=== PATIENT | male | born 1955 | race Caucasian/White ===

== ENCOUNTER → 2020-03-10 | Outpatient (CLI) | payer MEDICARE ==
[~2020-03-10] MED LIST: ASPIRIN E.C. 8181 MG PO; BYSTOLIC5 MG PO; CEFTIN500 MG PO; CEPHALEXIN500 M1 PO; COZAAR100 MG PO; DYAZIDE 25 MG-51 CAP PO; EXFORGE 10 MG-31 TAB PO; HYDRODIURIL50 MG PO; LASIX 40MG TABL40 MG PO; MAXZIDE 50 MG-71 TAB PO; NO HOME MEDICATIONS; NORCO 325 MG-51 TAB PO; NORVASC 10MG10 MG PO; ZYLOPRIM 300MG300 MG PO
== END ==
LOC: COL.RAD 12:56
DX: E11.22 Type 2 diabetes mellitus with diabetic chronic kidney disease (principal); N18.2 Chronic kidney disease, stage 2 (mild); R90.82 White matter disease, unspecified; R51 Headache

== ENCOUNTER 2020-05-11 08:38 | Emergency (ER) | payer MEDICARE ==
[~2020-05-11] VITALS: Ht 170.2 cm; Wt 131.8 kg
[2020-05-11 08:42] VITALS: BP 163/66; TEMP 97.6
[2020-05-11] MEDS ORDERED: MEDROL 4MG DOSPA4 MG PO (09:51)
[2020-05-11] MEDS ORDERED: HCTZ 25MG TAB25 MG PO (10:06)
[2020-05-11] MEDS ORDERED: PRINIVIL20 MG PO (10:06)
[2020-05-11] MEDS ORDERED: GLUCOPHAGE1000 MG PO (10:06)
[2020-05-11 10:10] VITALS: PULSE 86
== END 2020-05-11 10:11 | disposition home or self-care (01) ==
LOC: COL.ER 08:38
DX: M54.16 Radiculopathy, lumbar region (principal); M25.562 Pain in left knee; I10 Essential (primary) hypertension; M10.9 Gout, unspecified; Z79.82 Long term (current) use of aspirin

== ENCOUNTER 2020-09-24 15:05 | Emergency (ER) | payer MEDICARE ==
[~2020-09-24] VITALS: Ht 170.2 cm; Wt 127.3 kg
[~2020-09-24 15:05] MED LIST changes: +GLUCOPHAGE1000 MG PO; +HCTZ 25MG TAB25 MG PO; +MEDROL 4MG DOSPA4 MG PO; +PRINIVIL20 MG PO
[2020-09-24 15:14] VITALS: TEMP 98.2
[2020-09-24 15:47] LABS: BASO % 0.3 % (0.0-2.0); EOS % 0.3 % (0-4.0); GRAN # 10.7 (1.4-6.5); GRAN % 85.3 % (42.2-75.2); HEMATOCRIT 46.6 % (42.0-52.0); HEMOGLOBIN 16.3 g/dl (13.5-18.0); LYMPH # 0.9 (1.2-3.4); LYMPH % 6.8 % (20.0-51.0); MEAN CELL VOLUME 92 fl (80.0-100.0); MEAN CORPUSCULAR HEMOGLOBIN 32 pg (27.0-31.0); MEAN CORPUSCULAR HGB CONC 35 g/dl (33.0-37.0); MONO # 0.9 (0.1-0.6); MONO % 7.1 % (1.7-9.3); PLATELET COUNT 232 K/mm3 (130-400); RED BLOOD COUNT 5.09 M/mm3 (4.20-5.60); REDCELL DISTRIBUTION WIDTH-CV 13.4 % (11.5-14.5)
[2020-09-24 15:58] LABS: ALBUMIN 4.3 gm/dL (3.5-5.0); BILIRUBIN,TOTAL 0.7 mg/dL (0.0-1.0); C-REACTIVE PROTEIN 1.3 mg/dL (0.0-0.9); CALCIUM 9.5 mg/dL (8.4-10.2); CREATININE, serum 1.21 (0.66-1.25); POTASSIUM 4.1 mmol/L (3.4-5.0); TOTAL PROTEIN 7.4 gm/dL (6.4-8.2)
[2020-09-24 17:52] LABS: COLLECTION METHOD CLEAN CATCH
[2020-09-24 18:39] LABS: MUCOUS Present /lpf; PH 5 (5-8); SQUAMOUS EPITHELIAL None Seen /hpf; URINE APPEARANCE Clear; URINE BACTERIA None Seen /hpf; URINE BILIRUBIN Negative (NEGATIVE); URINE BLOOD Negative (NEGATIVE); URINE COLOR Yellow; URINE GLUCOSE Negative (NEGATIVE); URINE KETONE Trace (NEGATIVE); URINE LEUKOCYTE ESTERASE Negative (NEGATIVE); URINE NITRATE Negative (NEGATIVE); URINE PROTEIN(semi-quant) 1+ (NEGATIVE); URINE UROBILINOGEN Negative (NEGATIVE)
[2020-09-24] MEDS ORDERED: PRINIVIL20 MG PO (18:49)
[2020-09-24 19:00] VITALS: BP 150/106; PULSE 79
== END 2020-09-24 19:00 | disposition home or self-care (01) ==
LOC: COL.ER 15:05
PROVIDERS: Nurse Practitioner
DX: K59.00 Constipation, unspecified (principal); I10 Essential (primary) hypertension; Z79.82 Long term (current) use of aspirin; Z79.84 Long term (current) use of oral hypoglycemic drugs
CPT/HCPCS: Q9967

== ENCOUNTER 2021-03-07 15:38 | Inpatient (IN) | payer MEDICARE ==
[~2021-03-07] VITALS: Ht 170.2 cm; Wt 109.1 kg
[2021-03-07 16:19] LABS: BASO % 0.5 % (0.0-2.0); EOS % 0.1 % (0-4.0); GRAN % 81.1 % (42.2-75.2); HEMATOCRIT 41.8 % (42.0-52.0); HEMOGLOBIN 13.9 g/dl (13.5-18.0); LYMPH # 0.7 (1.2-3.4); MEAN CELL VOLUME 89 fl (80.0-100.0); MEAN CORPUSCULAR HEMOGLOBIN 30 pg (27.0-31.0); MEAN CORPUSCULAR HGB CONC 33 g/dl (33.0-37.0); MEAN PLATELET VOLUME 9.4 fl (7.4-10.4); MONO # 0.6 (0.1-0.6); MONO % 7.9 % (1.7-9.3); PLATELET COUNT 161 K/mm3 (130-400); RED BLOOD COUNT 4.71 M/mm3 (4.20-5.60); REDCELL DISTRIBUTION WIDTH-CV 14.6 % (11.5-14.5)
[2021-03-07 16:30] LABS: ALANINE AMINOTRANSFERASE 11 U/L (4-49); ALBUMIN 3.6 gm/dL (3.5-5.0); ALCOHOL(ethanol),MEDICAL < 10 mg/dL; ALKALINE PHOSPHATASE 66 U/L (50-136); ANION GAP 5 mmol/L (7-16); AST,SGOT 29 U/L (15-37); BILIRUBIN,TOTAL 0.7 mg/dL (0.0-1.0); BLOOD UREA NITROGEN 17 mg/dL (9-20); CARBON DIOXIDE 25 mmol/L (22-30); CHLORIDE 107 mmol/L (98-107); GLUCOSE 109 mg/dL (74-106); POTASSIUM 3.6 mmol/L (3.4-5.0); SODIUM 137 mmol/L (137-145); TOTAL PROTEIN 6.6 gm/dL (6.4-8.2)
[2021-03-07 17:09] LABS: INR 1.1 (0.8-3.0); PROTHROMBIN TIME 11.9 SECONDS (9.7-12.8)
--- NOTE | 2021-03-07 19:40 | NUR ---
Arrived on unit, awake, alert, oriented x 4, verbal with clear speech, no issues noted, denies pain, ambulates with steady gait, updated on plan of care.
[2021-03-07 20:01] LABS: HEMATOCRIT 40.4 % (42.0-52.0); HEMOGLOBIN 13.2 g/dl (13.5-18.0)
[2021-03-07 20:45] VITALS: BP 154/81; PULSE 67; TEMP 98
[2021-03-07 22:02] LABS: HEMATOCRIT 38.4 % (42.0-52.0); HEMOGLOBIN 12.7 g/dl (13.5-18.0)
[2021-03-08] VITALS (15 sets, daily range): BP systolic 135–201; BP diastolic 67–103; PULSE 60–100; TEMP 97.4–98.4
[2021-03-08 02:13] LABS: HEMATOCRIT 38.1 % (42.0-52.0); HEMOGLOBIN 12.7 g/dl (13.5-18.0)
[2021-03-08 06:18] LABS: BASO % 0.6 % (0.0-2.0); EOS # 0.1 (0.0-0.7); EOS % 1.3 % (0-4.0); GRAN # 3.1 (1.4-6.5); HEMOGLOBIN 11.9 g/dl (13.5-18.0); LYMPH # 1.1 (1.2-3.4); LYMPH % 22.3 % (20.0-51.0); MEAN CELL VOLUME 91 fl (80.0-100.0); MEAN CORPUSCULAR HEMOGLOBIN 30 pg (27.0-31.0); MEAN CORPUSCULAR HGB CONC 33 g/dl (33.0-37.0); MEAN PLATELET VOLUME 10.1 fl (7.4-10.4); MONO # 0.5 (0.1-0.6); MONO % 10.6 % (1.7-9.3); PLATELET COUNT 144 K/mm3 (130-400); RED BLOOD COUNT 3.95 M/mm3 (4.20-5.60); REDCELL DISTRIBUTION WIDTH-CV 14.6 % (11.5-14.5)
[2021-03-08 06:27] LABS: HEMATOCRIT 35.8 % (42.0-52.0)
[2021-03-08 06:29] LABS: CREATININE, serum 1.03 (0.66-1.25); POTASSIUM 3.4 mmol/L (3.4-5.0)
[2021-03-08 09:40] LABS: TRICYCLIC ANTIDEPRESS URINE NEGATIVE
--- NOTE | 2021-03-08 10:00 | NUR ---
Patient is doing well this morning. Denies pain and nausea. He is still having bowel movments from the bowel prep, so far they continue to be clear without blood. Voiding without issues. Patient is alert and oriented. Rating low on the detox protocol. His BP is elevated but no other changes at this time. Call light within reach. Patient will be going for his EGD/Colonoscopy later today. He is ready for that procedure. No other changes at this time. Call light within reach.
[2021-03-08 10:31] LABS: HEMATOCRIT 38.8 % (42.0-52.0); HEMOGLOBIN 12.6 g/dl (13.5-18.0)
--- NOTE | 2021-03-08 12:24 | NUR ---
SW met with the pt who stated his preference to return home once medically stable. The pt lives at home with a friend. The pt NK is Coni Ng (ph# [phone]). The pt is independent on all ADLS and uses a CPAP machine. The pt pcp is Alverto De La Torre and gets his medications from [facility] in [facility]. The pt has no troubles obtaining his cost. The pt does not have a DPAO-HC and is not interested in one at this time. The pt has never used HH services before. No other needs stated at this time. Sw to await further recommendations and follow up as needed. D/C: Home
--- NOTE | 2021-03-08 12:45 | NUR ---
Patient is going down for his procedure. He will sign consent after talking to the doctor. His blod pressure is starting to rise. Will speak with Dr Love about starting his BP medications. No other changes at this time.
[2021-03-08] MEDS ORDERED: ZESTRIL 20MG TA20 MG PO (14:13)
--- NOTE | 2021-03-08 15:00 | NUR ---
Patient back from his procedure at 1410, his BP is 191/92. Notified Dr Love, he ordered lisinopril. Will be giving his hydralazine as ordered. Patient is alert and oriented. He stated he stopped taking his home BP medications because he couldn't afford to get his medications. After giving medications his BP is now 168/80. No complaints of pain or nausea. No other changes at this time. Call light within reach. No other changes at this time.
--- NOTE | 2021-03-08 18:30 | NUR ---
Patients blood pressure has been better since getting the medications. No complaints of pain or nausea. He tolerated regular food without issues. Asked if he needed help contacting family about his condition, he stated no. He has continued to have loose stools, no more blood noted. No other changes at this time. Call light within reach.
[2021-03-08 19:24] LABS: HEMATOCRIT 38.5 % (42.0-52.0); HEMOGLOBIN 12.6 g/dl (13.5-18.0)
--- NOTE | 2021-03-08 23:01 | NUR ---
Pt has been ok. Currently resting. CIWA Has been 0 for me.VSS. Will continue to monitor.
[2021-03-09] VITALS (9 sets, daily range): BP systolic 137–155; BP diastolic 69–83; PULSE 61–87; TEMP 97.5–98.6
[2021-03-09 07:04] LABS: BASO % 0.6 % (0.0-2.0); EOS # 0.1 (0.0-0.7); EOS % 1.6 % (0-4.0); GRAN # 3.5 (1.4-6.5); GRAN % 70.2 % (42.2-75.2); HEMATOCRIT 37.2 % (42.0-52.0); HEMOGLOBIN 12.3 g/dl (13.5-18.0); LYMPH # 0.9 (1.2-3.4); LYMPH % 18.4 % (20.0-51.0); MEAN CELL VOLUME 91 fl (80.0-100.0); MEAN CORPUSCULAR HEMOGLOBIN 30 pg (27.0-31.0); MEAN CORPUSCULAR HGB CONC 33 g/dl (33.0-37.0); MEAN PLATELET VOLUME 9.9 fl (7.4-10.4); MONO # 0.4 (0.1-0.6); MONO % 8.8 % (1.7-9.3); PLATELET COUNT 137 K/mm3 (130-400); REDCELL DISTRIBUTION WIDTH-CV 14.8 % (11.5-14.5)
[2021-03-09 07:11] LABS: CALCIUM 8.3 mg/dL (8.4-10.2); CREATININE, serum 1.03 (0.66-1.25); POTASSIUM 3.4 mmol/L (3.4-5.0)
--- NOTE | 2021-03-09 08:45 | NUR ---
Patient is resting in bed, awake and oriented x 4, detox protocol patient is scoring 1. No nausea or vomiting. Tolerating food. No further needs at this time. Call light within reach.
--- NOTE | 2021-03-09 09:30 | NUR ---
Dr. Dudley in to see patient discussed transfering to or [place].
--- NOTE | 2021-03-09 12:20 | NUR ---
Initial visit; Patient thanked Planning Consultant for looking in on him and offering God's blessings.
--- NOTE | 2021-03-09 17:53 | NUR ---
Patient has been doing good all day long. Had a shower. No complains of pain, nausea or vomiting. SCDs in place. Both IVs where discontinued. New IV in the right foreamrm was started. No further needs at this moment. Call light within reach.
--- NOTE | 2021-03-09 21:11 | NUR ---
Pt has been in good spirit. Pain rated 0/10. Ciwa has been only 1. Will continue to monitor.
[2021-03-10 02:01] VITALS: BP 148/79; PULSE 87; TEMP 98.3
[2021-03-10 03:36] VITALS: BP 156/75; PULSE 61; TEMP 98
[2021-03-10 07:13] LABS: BASO % 0.4 % (0.0-2.0); EOS # 0.1 (0.0-0.7); EOS % 2.2 % (0-4.0); GRAN # 3.5 (1.4-6.5); GRAN % 69.2 % (42.2-75.2); HEMOGLOBIN 11.3 g/dl (13.5-18.0); LYMPH % 18.9 % (20.0-51.0); MEAN CELL VOLUME 93 fl (80.0-100.0); MEAN CORPUSCULAR HEMOGLOBIN 31 pg (27.0-31.0); MEAN CORPUSCULAR HGB CONC 33 g/dl (33.0-37.0); MONO # 0.5 (0.1-0.6); MONO % 9.1 % (1.7-9.3); PLATELET COUNT 132 K/mm3 (130-400); RED BLOOD COUNT 3.68 M/mm3 (4.20-5.60); REDCELL DISTRIBUTION WIDTH-CV 14.9 % (11.5-14.5)
[2021-03-10 07:14] LABS: HEMATOCRIT 34.3 % (42.0-52.0)
[2021-03-10 07:19] LABS: ALBUMIN 2.7 gm/dL (3.5-5.0); CALCIUM 8.3 mg/dL (8.4-10.2); CREATININE, serum 1.21 (0.66-1.25); PHOSPHOROUS 3.6 mg/dL (2.5-4.5); POTASSIUM 3.8 mmol/L (3.4-5.0)
[2021-03-10 08:00] VITALS: BP 155/83; PULSE 62; TEMP 97.6
--- NOTE | 2021-03-10 09:20 | NUR ---
Patient is resting in bed watching TV. Alert and oriented, VSS, no nausea, vomiting or pain. Last BM one hr ago, no blood reported. Meds provided, no furgther needs right now. Call light within reach.
--- NOTE | 2021-03-10 11:38 | NUR ---
FANNIE update: FANNIE met with patient about getting to his appointments and patient reports he does not have transportation. Unfortunately Medicare does not provide transportation. Educated patient about transport options.
[2021-03-10 11:56] VITALS: BP 160/89; PULSE 62; TEMP 97.9
[2021-03-10] MEDS ORDERED: THIAMINE 1100 MG/TAB PO (12:05)
[2021-03-10] MEDS ORDERED: FOLIC ACID 11 MG/TA1 PO (12:05)
[2021-03-10] MEDS ORDERED: DUO-KAPS1 CAP PO (12:06)
[2021-03-10] MEDS ORDERED: PRINIVIL20 MG PO (12:15)
--- NOTE | 2021-03-10 13:39 | NUR ---
Patient has been doing ok along the day. No complains of pain, nausea, vomiting. Getting ready to be discharged.
--- NOTE | 2021-03-10 14:11 | NUR ---
Reviewed discharge instructions with patients. All questions answered. Patient was taking out by Adela with a wheelchair.
== END 2021-03-10 14:12 | disposition home or self-care (01) | DRG 378 ==
LOC: COL.ER 15:38 → SURG 17:51
PROVIDERS: Emergency Medicine; Internal Medicine Gastroenterology; Nurse Practitioner Family; Nurse Practitioner Primary Care; Student in an Organized Health Care Education/Training Program
PROC: 0DJ08ZZ Inspection of Upper Intestinal Tract, Via Natural or Artificial Opening Endoscopic (ICD-10-PCS; 2021-03-08)
PROC: 0DBP8ZX Excision of Rectum, Via Natural or Artificial Opening Endoscopic, Diagnostic (ICD-10-PCS; principal; 2021-03-08 10:00)
PROC: 0DBK8ZX Excision of Ascending Colon, Via Natural or Artificial Opening Endoscopic, Diagnostic (ICD-10-PCS; 2021-03-08 10:00)
DX: K62.5 Hemorrhage of anus and rectum (principal); I38 Endocarditis, valve unspecified; K55.21 Angiodysplasia of colon with hemorrhage; F10.10 Alcohol abuse, uncomplicated; G47.30 Sleep apnea, unspecified; E66.01 Morbid (severe) obesity due to excess calories; I27.20 Pulmonary hypertension, unspecified; I49.5 Sick sinus syndrome; I10 Essential (primary) hypertension; K59.00 Constipation, unspecified; I25.10 Atherosclerotic heart disease of native coronary artery without angina pectoris; E27.9 Disorder of adrenal gland, unspecified; H44.9 Unspecified disorder of globe; Z91.14 Patient's other noncompliance with medication regimen; Z87.891 Personal history of nicotine dependence; Z95.0 Presence of cardiac pacemaker; Z68.37 Body mass index [BMI] 37.0-37.9, adult
CPT/HCPCS: 99223-AI; 99232-AI; 99233-AI; 99239; C9113; J0360; J2704; J3411; J7030

== ENCOUNTER 2021-07-10 11:13 | Day surgery (SDC) | payer MEDICARE ==
[2021-07-10] VITALS (7 sets, daily range): BP systolic 152–196; BP diastolic 59–99; PULSE 61–78; TEMP 98.3
[~2021-07-10] VITALS: Ht 167.6 cm; Wt 121.8 kg
[~2021-07-10 11:13] MED LIST changes: +DUO-KAPS1 CAP PO; +FOLIC ACID 11 MG/TA1 PO; +THIAMINE 1100 MG/TAB PO; +ZESTRIL 20MG TA20 MG PO
[2021-07-10] MEDS ORDERED: PRINIVIL20 MG PO (11:27)
[2021-07-10] MEDS ORDERED: NORCO 325 MG-51 TAB PO (12:25)
--- NOTE | 2021-07-10 13:32 | NUR ---
Patient arrived on cart from OR, escorted by Kimberlyn MONTIEL and Keith DAVIS. Report recieved. Vitals obtained. BP is very high and TECHNICAL ACCOUNT MANAGER is aware. New orders recieved. Patient requested Pepsi to drink and a warm muffin. will continue to monitor. BP retaken twice to confirm elevated reading. Call obrien is at bedside. Side rails x2.
--- NOTE | 2021-07-10 13:47 | NUR ---
Patient is alert and oriented x3. Watching TV. He is tolerating his muffin and soda well. Vitals obtained. Will continue to monitor.
--- NOTE | 2021-07-10 13:58 | NUR ---
Medication administered. BP prior 178/98. Will continue to monitor
--- NOTE | 2021-07-10 14:18 | NUR ---
Patient is resting in bed with TV on. Vitals obtained and BP has come down. Will continue to monitor.
--- NOTE | 2021-07-10 14:29 | NUR ---
Target BP achieved: 152/59, with a goal of 160/90 or below. Patient expressed desire to be discharged.
--- NOTE | 2021-07-10 14:45 | NUR ---
IV discontinued at this time. Catheter tip intact and pressure dressing applied. No redness or swelling noted. Vitals obtained. Patient education and discharge materials reviewed with patient. He verbalized understanding and denied having any additional questions. Santhosh, his friend and ride home was called. He is only about 10 minutes out.
--- NOTE | 2021-07-10 15:05 | NUR ---
Patient was escorted out via wheelchair to the [facility] from [facility] by DINESH Pace. Patient has his discharge instructions, discharge education, and personal belongings in his hand. Patient was transferred into the care of his friend Arley at this time, who is present to drive.
== END 2021-07-10 15:05 | disposition home or self-care (01) ==
LOC: SDCO 11:13
DX: C20 Malignant neoplasm of rectum (principal); I10 Essential (primary) hypertension; I25.10 Atherosclerotic heart disease of native coronary artery without angina pectoris; I49.5 Sick sinus syndrome; M19.90 Unspecified osteoarthritis, unspecified site; D64.9 Anemia, unspecified; Z87.891 Personal history of nicotine dependence; Z85.038 Personal history of other malignant neoplasm of large intestine; Z79.82 Long term (current) use of aspirin
CPT/HCPCS: C1788; J0360; J0690; J1644; J2250; J2704; J7120

== ENCOUNTER 2021-11-13 11:40 | Inpatient (IN) | payer MEDICARE ==
[~2021-11-13] VITALS: Ht 170.2 cm; Wt 139.8 kg
[2021-11-13] VITALS (14 sets, daily range): BP systolic 92–135; BP diastolic 65–96; PULSE 48–112; TEMP 97.7–98.8
[2021-11-13 12:24] LABS: BASO % 0.6 % (0.0-2.0); EOS % 0.3 % (0.0-4.0); GRAN # 2.7 K/mm3 (1.4-6.5); GRAN % 75.7 % (42.2-75.2); HEMOGLOBIN 11.5 g/dl (13.5-18.0); LYMPH # 0.4 K/mm3 (1.2-3.4); LYMPH % 12.5 % (20.0-51.0); MEAN CELL VOLUME 98 fl (80.0-100.0); MEAN CORPUSCULAR HEMOGLOBIN 32 pg (27-31); MEAN CORPUSCULAR HGB CONC 33 g/dl (33.0-37.0); MEAN PLATELET VOLUME 10.9 fl (7.4-10.4); MONO # 0.4 K/mm3 (0.1-0.6); MONO % 10.3 % (1.7-9.3); PLATELET COUNT 80 K/mm3 (130-400); RED BLOOD COUNT 3.62 M/mm3 (4.20-5.60); REDCELL DISTRIBUTION WIDTH-CV 22.5 % (11.5-14.5)
[2021-11-13 12:26] LABS: HEMATOCRIT 35.4 % (42.0-52.0)
[2021-11-13 12:28] LABS: INR 1.2 (0.8-3.0); PROTHROMBIN TIME 13.7 SECONDS (9.7-12.8)
[2021-11-13 12:33] LABS: ALBUMIN 3.4 gm/dL (3.4-4.8); BILIRUBIN,TOTAL 0.4 mg/dL (0.2-1.2); CALCIUM 8.2 mg/dL (8.4-10.2); CREATININE, serum 1.72 mg/dL (0.72-1.25); POTASSIUM 3.8 mmol/L (3.5-4.5); TOTAL PROTEIN 6.2 gm/dL (6.2-8.1)
[2021-11-13 12:39] LABS: TROPONIN-I 0.019 ng/mL (0.00-0.033)
[2021-11-13 13:30] LABS: COLLECTION METHOD CLEAN CATCH
[2021-11-13 13:37] LABS: PH 5 (5-8); SQUAMOUS EPITHELIAL None Seen /hpf (0-10); URINE APPEARANCE Clear (CLEAR/HAZY); URINE BACTERIA None Seen /hpf (NONE SEEN); URINE BILIRUBIN Negative (NEGATIVE); URINE BLOOD Negative (NEGATIVE); URINE COLOR Straw (YELLOW); URINE GLUCOSE Negative (NEGATIVE); URINE KETONE Negative (NEGATIVE); URINE LEUKOCYTE ESTERASE Negative (NEGATIVE); URINE NITRATE Negative (NEGATIVE); URINE PROTEIN(semi-quant) Negative (NEGATIVE); URINE RBC None Seen /hpf (0-2); URINE UROBILINOGEN Negative (NEGATIVE)
[2021-11-13] MEDS ORDERED: GLUCOPHAGE1000 MG PO (14:12)
[2021-11-13] MEDS ORDERED: LOPRESSOR 225 MG/TAB PO (14:12)
[2021-11-13] MEDS ORDERED: LASIX 40MG TABL40 MG PO (14:12)
[2021-11-13] MEDS ORDERED: ASPIRIN E.C. 8181 MG PO (14:12)
[2021-11-13] MEDS ORDERED: HCTZ 25MG TAB25 MG PO (14:13)
[2021-11-13] MEDS ORDERED: ZYLOPRIM 300MG300 MG PO (14:13)
--- NOTE | 2021-11-13 16:30 | NUR ---
PATIENT ADMITED INTO ROOM 315 FROM ER. PATIENT PRESENTED TO ER WITH C/O SOA. EKG SHOWED A-FIB/RVR. PATIENT SENT UP FROM ER WITH DILTIEZEM GTT, CARDIOLOGY CONSULTED MAR ORDER IS DC'D. NO C/O CHEST PAIN OR NAUSEA. VSS ON TELE. 02 SAT OF 98% ON RA. PATIENT IS OBESE AND BARREL CHESTED. POOR HYSTORIA, POOR HYGEINE AND SEEMS NON-COMPLIENT DURING ADMISSION ASSESSMENT. LOCAL PHARMACY CONTACTED FOR MED LIST. PATIENT UNSURE OF LAST DOSES. BS OF 79. ADA DIET ORDERED. BS ACHS. HEAD TO TOE ASSESSMENT COMPLETE. OBTAINING ORDERS FROM PROVIDER. ORIENTED TO ROOM. CALL LIGHT IN REACH.
--- NOTE | 2021-11-13 16:45 | NUR ---
CARDIZEM GTT INFUSING FROM ER STOPPED PER ORDERS. STARTED AMIODERONE GTT PER ORDERS. VSS. PATIENT TOLERATING WELL.
[2021-11-13] MEDS ORDERED: FOLIC ACID 11 MG/TA1 PO (17:04)
[2021-11-13] MEDS ORDERED: NORCO 325 MG-51 TAB PO (17:08)
[2021-11-13] MEDS ORDERED: NATURE'S BLEND100 M2 PO (17:11)
[2021-11-14] VITALS (21 sets, daily range): BP systolic 84–158; BP diastolic 53–113; PULSE 79–116; TEMP 97.2–99.3
--- NOTE | 2021-11-14 06:30 | NUR ---
ASSESSMENT COMPLETE FOR THIS SHIFT. PT RESTING IN BED DOZING OFF WHILE WATCHING TV. PT DENIES PAIN, N,V,D, SOB OR DIZZINESS. PT CONTINUES ON AMIODARONE DRIP. PT TOLERATING. PT EXPRESSED NO OTHER NEEDS AT THIS TIME. CALL LIGHT WITHIN REACH.
[2021-11-14 07:59] LABS: BASO % 0.5 % (0.0-2.0); EOS % 0.5 % (0.0-4.0); GRAN % 73.6 % (42.2-75.2); HEMOGLOBIN 10.3 g/dl (13.5-18.0); LYMPH # 0.5 K/mm3 (1.2-3.4); LYMPH % 13.1 % (20.0-51.0); MEAN CELL VOLUME 99 fl (80.0-100.0); MEAN CORPUSCULAR HEMOGLOBIN 31 pg (27-31); MEAN CORPUSCULAR HGB CONC 32 g/dl (33.0-37.0); MONO # 0.5 K/mm3 (0.1-0.6); MONO % 12.1 % (1.7-9.3); PLATELET COUNT 67 K/mm3 (130-400); RED BLOOD COUNT 3.28 M/mm3 (4.20-5.60); REDCELL DISTRIBUTION WIDTH-CV 23.2 % (11.5-14.5)
[2021-11-14 08:03] LABS: HEMATOCRIT 32.5 % (42.0-52.0)
[2021-11-14 08:07] LABS: CREATININE, serum 1.76 mg/dL (0.72-1.25); MAGNESIUM 1.7 mg/dL (1.6-2.6); POTASSIUM 3.7 mmol/L (3.5-4.5)
[2021-11-14 08:28] LABS: TSH w REFLEX 1.809 uIU/mL (0.350-4.940)
--- NOTE | 2021-11-14 12:49 | NUR ---
Phototypesetter Operator visited with patient briefly. Nothing else needed.
--- NOTE | 2021-11-14 14:50 | NUR ---
forest worker met with patient to complete discharge plan. Patient currently lives at home alone in [place]. Patient reports to being independent with his ADL's and does not utilize and DME to assist with ambulation. Patient reports to no home oxygen needs. PCP is Dr. De La Torre and he utilizes [facility] for medications with no cost difficulty. Patient verbalizes that he does not have a DPOA-HC established. He has never been , has no children, siblings and that his parents to . Patient's established NOK would be his cousin Alverto ([phone]). Education provided and the patient is ok with Alverto being his decision maker. Dischar plan: Home; pending PT/OT eval
[2021-11-15] VITALS (7 sets, daily range): BP systolic 110–125; BP diastolic 57–96; PULSE 81–120; TEMP 97.5–98.6
--- NOTE | 2021-11-15 05:30 | NUR ---
ASSESSMENT COMPLETE FOR THIS SHIFT. PT RESTING IN BED WATCHING TV. PT DENIED PAIN, PALPITATIONS, N,V,D, SOB (AT REST), OR DIZZINESS. TWO BLADDER SCANS DONE THIS SHIFT. THE FIRST SHOWED 106ML IN HIS BLADDER. THE SECOND AT FIRST SHOWED 301. I TOLD PT I WOULD BE PLACING A CATHETER. PT STATED HE HAD TO URINATE. PT URINED 200ML WITH MORE MISSING THE HAT AND GOING INTO THE TOILET. BLADDER SCAN REPEATED, IT ONLY READ 3ML, BUT I WOULD GUESSTIMATE IT'S MORE LIKE 50ML. PT EXPRESSED NO OTHER NEEDS AT THIS TIME. CALL LIGHT WITHIN REACH.
[2021-11-15 07:56] LABS: BASO % 0.2 % (0.0-2.0); EOS % 0.5 % (0.0-4.0); GRAN # 3.5 K/mm3 (1.4-6.5); GRAN % 78.1 % (42.2-75.2); HEMOGLOBIN 10.7 g/dl (13.5-18.0); LYMPH # 0.6 K/mm3 (1.2-3.4); LYMPH % 12.4 % (20.0-51.0); MEAN CELL VOLUME 97 fl (80.0-100.0); MEAN CORPUSCULAR HEMOGLOBIN 31 pg (27-31); MEAN CORPUSCULAR HGB CONC 32 g/dl (33.0-37.0); MONO # 0.4 K/mm3 (0.1-0.6); MONO % 8.6 % (1.7-9.3); PLATELET COUNT 70 K/mm3 (130-400); RED BLOOD COUNT 3.41 M/mm3 (4.20-5.60); REDCELL DISTRIBUTION WIDTH-CV 22.8 % (11.5-14.5)
[2021-11-15 07:59] LABS: HEMATOCRIT 33.1 % (42.0-52.0)
[2021-11-15 08:14] LABS: CREATININE, serum 1.91 mg/dL (0.72-1.25); POTASSIUM 3.6 mmol/L (3.5-4.5)
--- NOTE | 2021-11-15 10:19 | NUR ---
DR. BUENO GAVE VERBAL ORDER TO START PT ON Q8H SQ HEPARIN FOR VTE. PT ALSO ON ASPIRIN 81MG, OK TO CONTINUE BOTH.
--- NOTE | 2021-11-15 21:06 | NUR ---
Pt resting in bed laying on his right side. Pt is pretty far on the right side. Asked pt to move more the center of the bed, but pt refused. Pt also did this at shift change too. We were able to get him to move at that time, but he was very unhappy about it. Pt very short with conversation, simple one word answers. Asked pt if anything was wrong and he replied with no. Pt denied having any pain. Pt denies any needs, refusing to use bipap at this time. Pt educated again on the fluid restriction. Pt only responded with a smile. Call light within reach.
[2021-11-16] VITALS (7 sets, daily range): BP systolic 122–151; BP diastolic 77–112; PULSE 52–104; TEMP 97.3–97.8
--- NOTE | 2021-11-16 00:22 | NUR ---
Pt continues to be awake. He continues to be on his right side stating he is comfortable although he does not appear to be. Pt denies any needs, call light within reach
--- NOTE | 2021-11-16 04:24 | NUR ---
Pt diastolic BP elevated. Pt sitting up on the side of the bed. Pt stated he is irritated because of his catheter and he is not able to get comfortable. Reports not having any pain, but it bothers him. Notified ELVIE Loja of elevated BP. While pt was sitting up, he was leaning on his bedside table. Pt started to get choked up for air. Pt had to lean back to catch his breath. Asked if he was okay and he stated he was, that "that happens."
[2021-11-16 06:37] LABS: BASO % 0.5 % (0.0-2.0); EOS % 0.3 % (0.0-4.0); GRAN # 5.1 K/mm3 (1.4-6.5); GRAN % 81.8 % (42.2-75.2); HEMOGLOBIN 11.4 g/dl (13.5-18.0); LYMPH # 0.5 K/mm3 (1.2-3.4); LYMPH % 8.7 % (20.0-51.0); MEAN CELL VOLUME 98 fl (80.0-100.0); MEAN CORPUSCULAR HEMOGLOBIN 31 pg (27-31); MEAN CORPUSCULAR HGB CONC 32 g/dl (33.0-37.0); MEAN PLATELET VOLUME 11.2 fl (7.4-10.4); MONO # 0.5 K/mm3 (0.1-0.6); MONO % 8.5 % (1.7-9.3); PLATELET COUNT 101 K/mm3 (130-400); REDCELL DISTRIBUTION WIDTH-CV 22.8 % (11.5-14.5)
[2021-11-16 06:54] LABS: HEMATOCRIT 36.2 % (42.0-52.0)
[2021-11-16 07:10] LABS: CALCIUM 8.3 mg/dL (8.4-10.2); CREATININE, serum 2.14 mg/dL (0.72-1.25); POTASSIUM 3.7 mmol/L (3.5-4.5)
--- NOTE | 2021-11-16 08:28 | NUR ---
Patient A&Ox4, laying in bed w/ bipap on. Bipap removed at this time so patient could take medications and eat breakfast. Patient is very pleasant and appears to be in a good mood. Patient is reported to be a SBA, able to change positions in bed independently. Call light is w/in reach.
--- NOTE | 2021-11-16 09:38 | NUR ---
Patient sitting in recliner upon entering the room. Patient is A&Ox4, and independent. Lindquist is intact and draining properly. Patient is currently NPO per cardiology. This RN has been instructed to hold meds. Patient does not have and concerns at this time. Denies any discomfort.
--- NOTE | 2021-11-16 14:42 | NUR ---
Patient has not expressed any concerns. Consent signed for cardioversion. Patient remains in recliner. Pacemaker device download completed by this RN.
--- NOTE | 2021-11-16 18:32 | NUR ---
Patient notified of POC change; Lexiscan scheduled for tomorrow. Patient will become NPO at midnight.
--- NOTE | 2021-11-16 23:14 | NUR ---
Patient assessed around 2109. Alert and oriented, and able to make needs known. Denies pain and discomfort. Peripheral INT to left AC. Denies SOB and dyspnea at rest, does with exertion. LS diminished. Refusing BIPAP. Telemetry in place. BSAx4. 2+ edema BLE. Voices no questions, needs, or concerns at this time. Aware that he is to be NPO after midnight for lexiscan tomorrow.
[2021-11-17] VITALS (11 sets, daily range): BP systolic 123–172; BP diastolic 78–118; PULSE 69–105; TEMP 97.5–98.5
--- NOTE | 2021-11-17 04:54 | NUR ---
Patient has been resting in bed with call light within reach. Has denied pain and discomfort this shift. Has been NPO since midnight for lexiscan today. Voices no questions, needs, or concerns at htis time.
[2021-11-17 06:45] LABS: BASO % 0.2 % (0.0-2.0); EOS % 0.6 % (0.0-4.0); GRAN # 4.2 K/mm3 (1.4-6.5); GRAN % 81.5 % (42.2-75.2); HEMOGLOBIN 10.9 g/dl (13.5-18.0); LYMPH # 0.5 K/mm3 (1.2-3.4); LYMPH % 8.7 % (20.0-51.0); MEAN CELL VOLUME 101 fl (80.0-100.0); MEAN CORPUSCULAR HEMOGLOBIN 32 pg (27-31); MEAN CORPUSCULAR HGB CONC 31 g/dl (33.0-37.0); MEAN PLATELET VOLUME 10.3 fl (7.4-10.4); MONO # 0.5 K/mm3 (0.1-0.6); MONO % 8.8 % (1.7-9.3); PLATELET COUNT 107 K/mm3 (130-400); RED BLOOD COUNT 3.46 M/mm3 (4.20-5.60); REDCELL DISTRIBUTION WIDTH-CV 22.5 % (11.5-14.5)
[2021-11-17 06:51] LABS: HEMATOCRIT 34.8 % (42.0-52.0)
[2021-11-17 07:00] LABS: CALCIUM 8.2 mg/dL (8.4-10.2); CREATININE, serum 1.72 mg/dL (0.72-1.25); POTASSIUM 3.7 mmol/L (3.5-4.5)
--- NOTE | 2021-11-17 07:00 | NUR ---
Shift assessment complete. Pt resting in bed. Telemetry on, AP of 72, irregular. Upper lobes clear, bilateral lower lobes diminished. Cath care completed. +3 pitting edema bilateral LE. INT in left forearm, no redness/edema noted. Pt denies pain or sob.
--- NOTE | 2021-11-17 09:53 | NUR ---
Patient laying in bed upon entering the room. Denies any concerns. Patient taken down for lexiscan, has been NPO since midnight.
--- NOTE | 2021-11-17 10:49 | NUR ---
Social Work student followed up with patient. SW checked in with patient to see if he was still comfortable with discharging home when ready, and he said, "Yeah." SW also asked how he was doing, and the patient said, "Alright."
--- NOTE | 2021-11-17 13:59 | NUR ---
Receive report that patient has recently received chemotherapy. Verified with Dr. Childers's office that patient received Folfox 11/02. There needs to be ongoing chemo precautions for handling patient urine. Notified care team and placed sign outside patient door. Folfox a combination drug: leucovorin calcium (folinic acid), fluorouracil, and oxaliplatin
--- NOTE | 2021-11-17 18:38 | NUR ---
Patient's IV infiltrated during lexiscan. Port accessed by DINESH Calvillo. Patient had stool on his legs, PCT assisted the patient w/ getting cleaned up.
[2021-11-18] VITALS (7 sets, daily range): BP systolic 114–158; BP diastolic 77–104; PULSE 63–90; TEMP 97.1–98
--- NOTE | 2021-11-18 03:40 | NUR ---
ASSESSMENT COMPLETE FOR THIS SHIFT. PT RESTING IN BED WATCHING TV. PT DENIED PAIN, PALPITATIONS, N,V,D, SOB OR DIZZINESS. PT HAD A PRETTY UNEVENTFUL NIGHT. PT EXPRESSED NO OTHER NEEDS AT THIS TIME. CALL LIGHT WITHIN REACH.
[2021-11-18 06:46] LABS: CALCIUM 8.1 mg/dL (8.4-10.2); CREATININE, serum 1.59 mg/dL (0.72-1.25); POTASSIUM 3.9 mmol/L (3.5-4.5)
[2021-11-18 06:50] LABS: HEMOGLOBIN 10.7 g/dl (13.5-18.0); MEAN CELL VOLUME 102 fl (80.0-100.0); MEAN CORPUSCULAR HEMOGLOBIN 32 pg (27-31); MEAN CORPUSCULAR HGB CONC 31 g/dl (33.0-37.0); MEAN PLATELET VOLUME 11.2 fl (7.4-10.4); PLATELET COUNT 136 K/mm3 (130-400); RED BLOOD COUNT 3.37 M/mm3 (4.20-5.60); REDCELL DISTRIBUTION WIDTH-CV 22.2 % (11.5-14.5)
[2021-11-18 07:13] LABS: HEMATOCRIT 34.2 % (42.0-52.0)
[2021-11-18 07:21] LABS: EOSINOPHIL 1 % (0-4); LYMPHOCYTE 12 % (20.0-51.0); NEUTROPHILS 75 % (42.0-75.2)
[2021-11-18 07:22] LABS: ANISOCYTOSIS 2+
--- NOTE | 2021-11-18 07:30 | NUR ---
Shift assessment completed. Pt resting in bed. Portacath in rt upper chest AP irregular at 79. +3 RLE, +2 LLE. SCD's not on at this time.
--- NOTE | 2021-11-18 10:24 | NUR ---
PT RESTING IN BED. MORNING MEDICATIONS GIVEN BY STUDENT RN. SHIFT ASSESSMENT COMPLETED. PORT FLUSHES AND HAS GOOD BLOOD RETURN. DENIES ANY PAIN AT THIS TIME. BLE PITTING EDEMA NOTED. WILL CONTINUE TO MONITOR.
--- NOTE | 2021-11-18 10:40 | NUR ---
D/C villarreal catheter tip intact. 125mL of alison urine from villarreal. Pt given urinal.
--- NOTE | 2021-11-18 18:30 | NUR ---
PT HAD UNEVENTFUL DAY. DENIES ANY PAIN OR NEEDS. PT GIVEN A GLASS OF APPLE JUICE AFTER BLOOD SUGAR OF 70. WILL PASS ALONG REPORT TO ONCOMING RN.
[2021-11-19 00:24] VITALS: BP 122/72; PULSE 84; TEMP 97.6
[2021-11-19 04:52] VITALS: BP 148/63; PULSE 74; TEMP 98.1
--- NOTE | 2021-11-19 05:58 | NUR ---
ASSESSMENT COMPLETE FOR THIS SHIFT. PT RESTING IN BED WATCHING TV. PT DENIED PAIN, PALPITATIONS, N,V,D OR DIZZINESS. PT CONTINUES TO HAVE SOME SOB WITH AMBULATION. PT EXPRESSED NO OTHER NEEDS AT THIS TIME. CALL LIGHT WITHIN REACH.
[2021-11-19 06:25] LABS: BASO % 0.6 % (0.0-2.0); EOS # 0.1 K/mm3 (0.0-0.7); EOS % 1.8 % (0.0-4.0); GRAN # 2.2 K/mm3 (1.4-6.5); GRAN % 65.7 % (42.2-75.2); HEMOGLOBIN 10.5 g/dl (13.5-18.0); LYMPH # 0.5 K/mm3 (1.2-3.4); LYMPH % 14.6 % (20.0-51.0); MEAN CELL VOLUME 99 fl (80.0-100.0); MEAN CORPUSCULAR HEMOGLOBIN 32 pg (27-31); MEAN CORPUSCULAR HGB CONC 32 g/dl (33.0-37.0); MEAN PLATELET VOLUME 10.7 fl (7.4-10.4); MONO # 0.6 K/mm3 (0.1-0.6); PLATELET COUNT 144 K/mm3 (130-400); REDCELL DISTRIBUTION WIDTH-CV 21.5 % (11.5-14.5)
[2021-11-19 06:27] LABS: HEMATOCRIT 32.7 % (42.0-52.0)
[2021-11-19 06:48] LABS: CALCIUM 8.1 mg/dL (8.4-10.2); CREATININE, serum 1.57 mg/dL (0.72-1.25); POTASSIUM 3.8 mmol/L (3.5-4.5)
[2021-11-19 07:37] VITALS: BP 153/87; PULSE 81; TEMP 97.5
--- NOTE | 2021-11-19 09:44 | NUR ---
PT SITTING UP IN RECLINER AFTER SHOWER. MORNING MEDICATIONS GIVEN. SHIFT ASSESSMENT COMPLETED. PT CONTINUES TO HAVE 3+ PITTING EDEMA TO BLE. DENIES ANY PAIN OR NEEDS. CENTRAL LINE FLUSHES AND HAS GOOD BLOOD RETURN. WILL CONTINUE TO MONITOR.
[2021-11-19] MEDS ORDERED: LANOXIN 0.120.125 MG PO (10:38)
[2021-11-19] MEDS ORDERED: LOPRESSOR 550 MG/TAB PO (10:38)
[2021-11-19] MEDS ORDERED: ZESTRIL 5MG5 MG PO (10:44)
--- NOTE | 2021-11-19 11:00 | NUR ---
The clinical team is ready to discharge the patient today. FANNIE met with the patient to review discharge plan. The patient plans to return home today, 11/19. FANNIE presented and read the IM form outloud to the patient. The patient verbalized understanding and is in agreement to discharge today. He signed the form and FANNIE provided him with a copy. No additional needs at this time.
--- NOTE | 2021-11-19 11:43 | NUR ---
PORT DEACCESSED AT THIS TIME. PT PACKING UP BELONGINGS AND GETTING DRESSED.
--- NOTE | 2021-11-19 12:41 | NUR ---
DISCHARGE INSTRUCTIONS GIVEN. ALL QUESTIONS ANDSWERED. ESCORTED PT DOWN TO VEHICLE.
== END 2021-11-19 12:42 | disposition home or self-care (01) | DRG 308 ==
LOC: COL.ER 11:40 → MEDICAL 14:29
PROVIDERS: Physician Assistant; Student in an Organized Health Care Education/Training Program; ADMIT Internal Medicine
PROC: 5A09357 Assistance with Respiratory Ventilation, Less than 24 Consecutive Hours, Continuous Positive Airway Pressure (ICD-10-PCS; principal; 2021-11-14)
DX: I48.0 Paroxysmal atrial fibrillation (principal); I50.21 Acute systolic (congestive) heart failure; C20 Malignant neoplasm of rectum; N17.9 Acute kidney failure, unspecified; I13.0 Hypertensive heart and chronic kidney disease with heart failure and stage 1 through stage 4 chronic kidney disease, or unspecified chronic kidney disease; Z68.42 Body mass index [BMI] 45.0-49.9, adult; I25.10 Atherosclerotic heart disease of native coronary artery without angina pectoris; I49.5 Sick sinus syndrome; I08.1 Rheumatic disorders of both mitral and tricuspid valves; I27.20 Pulmonary hypertension, unspecified; G47.30 Sleep apnea, unspecified; K59.00 Constipation, unspecified; M10.9 Gout, unspecified; M19.90 Unspecified osteoarthritis, unspecified site; N18.9 Chronic kidney disease, unspecified; E66.01 Morbid (severe) obesity due to excess calories; E11.22 Type 2 diabetes mellitus with diabetic chronic kidney disease; I42.8 Other cardiomyopathies; D64.9 Anemia, unspecified; D69.6 Thrombocytopenia, unspecified; Z79.84 Long term (current) use of oral hypoglycemic drugs; Z79.82 Long term (current) use of aspirin; Z95.0 Presence of cardiac pacemaker; Z87.891 Personal history of nicotine dependence; Z91.14 Patient's other noncompliance with medication regimen; Z23 Encounter for immunization
CPT/HCPCS: 99223-AI; 99232-AI; 99233-AI; 99239; A4314; A9500; J0282; J0360; J1160; J1644; J1940; J2785; J7060

== ENCOUNTER 2022-01-08 14:06 | Inpatient (IN) | payer MEDICARE ==
[~2022-01-08] VITALS: Ht 170.2 cm; Wt 127.7 kg
[~2022-01-08 14:06] MED LIST changes: +LANOXIN 0.120.125 MG PO; +LOPRESSOR 225 MG/TAB PO; +LOPRESSOR 550 MG/TAB PO; +NATURE'S BLEND100 M2 PO; +ZESTRIL 5MG5 MG PO
[2022-01-08 16:35] LABS: BASO % 0.3 % (0.0-2.0); EOS % 0.2 % (0.0-4.0); GRAN # 7.2 K/mm3 (1.4-6.5); GRAN % 80.6 % (42.2-75.2); HEMATOCRIT 38.9 % (42.0-52.0); HEMOGLOBIN 12.2 g/dl (13.5-18.0); LYMPH # 0.6 K/mm3 (1.2-3.4); LYMPH % 6.2 % (20.0-51.0); MEAN CELL VOLUME 104 fl (80.0-100.0); MEAN CORPUSCULAR HEMOGLOBIN 33 pg (27-31); MEAN CORPUSCULAR HGB CONC 31 g/dl (33.0-37.0); MEAN PLATELET VOLUME 10.3 fl (7.4-10.4); MONO # 1.1 K/mm3 (0.1-0.6); MONO % 12.5 % (1.7-9.3); PLATELET COUNT 114 K/mm3 (130-400); RED BLOOD COUNT 3.74 M/mm3 (4.20-5.60); REDCELL DISTRIBUTION WIDTH-CV 17.2 % (11.5-14.5)
[2022-01-08 16:40] LABS: INR 1.3 (0.8-3.0)
[2022-01-08 16:55] LABS: ALBUMIN 3.3 gm/dL (3.4-4.8); ALKALINE PHOSPHATASE 113 U/L (40-150); ANION GAP 15 mmol/L (7-16); AST,SGOT 15 U/L (5-34); BILIRUBIN,TOTAL 0.8 mg/dL (0.2-1.2); BLOOD UREA NITROGEN 26 mg/dL (8-26); CALCIUM 8.3 mg/dL (8.4-10.2); CARBON DIOXIDE 21 mmol/L (23-31); CHLORIDE 107 mmol/L (98-107); CREATININE, serum 1.76 mg/dL (0.72-1.25); GLUCOSE 111 mg/dL (70-99); POTASSIUM 4.3 mmol/L (3.5-4.5); SODIUM 143 mmol/L (136-145); TOTAL PROTEIN 6.2 gm/dL (6.2-8.1)
[2022-01-08 17:01] LABS: ALANINE AMINOTRANSFERASE < 6 U/L (0-55)
[2022-01-08 20:09] LABS: C-REACTIVE PROTEIN 14.67 mg/dL (0.00-0.50); MAGNESIUM 1.8 mg/dL (1.6-2.6); PHOSPHOROUS 3.2 mg/dL (2.3-4.7)
[2022-01-08 20:29] LABS: THYROID STIMULATING HORMONE 6.859 uIU/mL (0.350-4.940); TROPONIN-I 0.01 ng/mL (0.00-0.033)
[2022-01-08] MEDS ORDERED: TOPROL XL100 MG PO (21:26)
[2022-01-08 21:30] VITALS: BP 114/80; PULSE 98; TEMP 98.3
[2022-01-08 22:00] VITALS: BP 106/60; PULSE 57; TEMP 98.5
[2022-01-08 23:00] VITALS: BP 119/70; PULSE 91; TEMP 98.3
[2022-01-09] VITALS (15 sets, daily range): BP systolic 97–136; BP diastolic 57–94; PULSE 62–102; TEMP 97.6–98.8
--- NOTE | 2022-01-09 06:00 | NUR ---
PT ARRIVED TO THE MEDICAL FLOOR AROUND 2130HRS TO RM 310. PT A&O X 4; VSS; O2 2.5L VIA NC. PT DENIED CHEST PAIN, GENERAL PAIN, PALPITATIONS, N,V,D OR DIZZINESS. PT DID HAVE SOME SOB AT REST AND WITH AMBULATION. ADMISSIONS ASSESSMENT AND MED REC COMPLETE. PT ORIENTED TO ROOM AND HOSPITAL POLICY. POC DISCUSSED WITH PT. PT VERBALIZED UNDERSTANDING. ALL QUESTIONS AND CONCERNS ADDRESSED. PT EXPRESSED NO ADDITIONAL NEEDS AT THIS TIME. CALL LIGHT WITHIN REACH.
[2022-01-09 07:54] LABS: BASO % 0.6 % (0.0-2.0); EOS # 0.1 K/mm3 (0.0-0.7); EOS % 0.9 % (0.0-4.0); GRAN # 3.8 K/mm3 (1.4-6.5); GRAN % 71.6 % (42.2-75.2); HEMOGLOBIN 10.8 g/dl (13.5-18.0); LYMPH # 0.5 K/mm3 (1.2-3.4); LYMPH % 10.2 % (20.0-51.0); MEAN CELL VOLUME 103 fl (80.0-100.0); MEAN CORPUSCULAR HEMOGLOBIN 32 pg (27-31); MEAN CORPUSCULAR HGB CONC 31 g/dl (33.0-37.0); MONO # 0.9 K/mm3 (0.1-0.6); MONO % 16.5 % (1.7-9.3); PLATELET COUNT 118 K/mm3 (130-400); RED BLOOD COUNT 3.33 M/mm3 (4.20-5.60); REDCELL DISTRIBUTION WIDTH-CV 17.3 % (11.5-14.5)
[2022-01-09 07:57] LABS: HEMATOCRIT 34.4 % (42.0-52.0)
[2022-01-09 08:04] LABS: ANION GAP 12 mmol/L (7-16); BLOOD UREA NITROGEN 28 mg/dL (8-26); CALCIUM 8.3 mg/dL (8.4-10.2); CARBON DIOXIDE 23 mmol/L (23-31); CHLORIDE 108 mmol/L (98-107); CHOLESTEROL 90 mg/dL (0-199); CHOLESTEROL RISK RATIO 2.4; CREATININE, serum 1.66 mg/dL (0.72-1.25); GLUCOSE 102 mg/dL (70-99); HDL CHOLESTEROL 37 mg/dL (40-60); LDL CHOLESTEROL 37 mg/dL; POTASSIUM 3.9 mmol/L (3.5-4.5); SODIUM 143 mmol/L (136-145); TRIGLYCERIDE 78 mg/dL (0-149)
[2022-01-09 08:13] LABS: TROPONIN-I < 0.010 ng/mL (0.00-0.033)
--- NOTE | 2022-01-09 10:00 | NUR ---
Assessment completed, alert/oriented, vital signs stable, denies pain or discomfort, states he "feels alright", denies resp.difficutly at rest, lungs diminished throughout/ RUL exp wheezing, some mild edema to BLE, heart irregular/a.fib on tele with rate in better controll, continues on IV Cardizem gtt and hourly VS, IV lasix for diuresing/ good UOP, Cardiology here to see patient, denies needs, will continue to monitor
--- NOTE | 2022-01-09 11:36 | NUR ---
SW met with patient to complete intake. Patient states that he lives in [place], point of contact is sister Jolene [phone]. Patient states that he utilizes a walker and is independent with ADL's and does not utilize HH services at this time. PCP is Dr. De La Torre, pharmacy is [facility]. Patient does not have anyone appointed as DPOA and does not wish to appoint anyone at this time. Plan is to return to his home upon DC. FANNIE will continue to follow. DC plan: home
--- NOTE | 2022-01-09 12:49 | NUR ---
IV Cardizem gtt dicsontinued/ vitals changed to Q4hr
[2022-01-10 04:05] VITALS: BP 133/90; PULSE 82; TEMP 97.7
[2022-01-10 07:04] LABS: CALCIUM 8.3 mg/dL (8.4-10.2); CREATININE, serum 1.65 mg/dL (0.72-1.25); MAGNESIUM 1.9 mg/dL (1.6-2.6); POTASSIUM 3.6 mmol/L (3.5-4.5)
--- NOTE | 2022-01-10 07:32 | NUR ---
ASSESSMENT COMPLETE FOR THIS SHIFT. PT RESTING IN BED WATCHING TV. PT DENIED PAIN, PALPITATIONS, N,V,D OR DIZZINESS. PT CONTINUES WITH SOB AT REST AND AMBULATION. PT HAD A PRETTY UNEVENTFUL NIGHT. PT EXPRESSED NO OTHER NEEDS AT THIS TIME.CALL LIGHT WITHIN REACH.
[2022-01-10 08:00] VITALS: BP 140/73; PULSE 95; TEMP 98.2
--- NOTE | 2022-01-10 11:07 | NUR ---
Scheduled medications given. Shift assessment preformed. Patient currently requiring 2.5 L of O2 via nasal cannula. Dyspnea upon exertion noted. Patient denies any pain, discomfort, or further needs at this time. VSS. Patient A&O. Call light in reach. Fall percautions in place.
[2022-01-10 12:00] VITALS: BP 133/82; PULSE 70; TEMP 97.5
[2022-01-10 15:01] VITALS: BP 136/90; PULSE 92; TEMP 98.2
--- NOTE | 2022-01-10 17:45 | NUR ---
Patient has had an ok day. Currently on RA. Dyspnea upon exertion noted. States that he is beginning to have a back ache r/t being in bed to long. Patient transferred to chair. Patient denies any further pain, discomfort, SOA, or further needs this time. Call light in reach. Fall percautions in place.
[2022-01-10 20:22] VITALS: BP 120/85; PULSE 96; TEMP 98.6
[2022-01-10 23:44] VITALS: BP 150/99; PULSE 87; TEMP 98.2
[2022-01-11 00:10] VITALS: BP 137/96
--- NOTE | 2022-01-11 02:40 | NUR ---
ASSESSMENT COMPLETE FOR THIS SHIFT. PT RESTING IN BED WATCHING TV. PT DENIED PAIN, PALPITATIONS, N,V,D OR DIZZINESS. PT SEEMED TO HAVE LESS SOB AT REST BUT STILL HAS SOB WITH AMBULATION. PT LOOKING FORWARD TO GETTING HOME. PT EXPRESSED NO OTHER NEEDS, CALL LIGHT WITHIN REACH.
[2022-01-11 03:45] VITALS: BP 147/90; PULSE 98; TEMP 97.4
[2022-01-11 06:21] LABS: EOS # 0.1 K/mm3 (0.0-0.7); EOS % 2.4 % (0.0-4.0); GRAN # 2.8 K/mm3 (1.4-6.5); GRAN % 67.5 % (42.2-75.2); HEMOGLOBIN 11.1 g/dl (13.5-18.0); LYMPH # 0.7 K/mm3 (1.2-3.4); LYMPH % 16.4 % (20.0-51.0); MEAN CELL VOLUME 105 fl (80.0-100.0); MEAN CORPUSCULAR HEMOGLOBIN 32 pg (27-31); MEAN CORPUSCULAR HGB CONC 31 g/dl (33.0-37.0); MEAN PLATELET VOLUME 10.3 fl (7.4-10.4); MONO # 0.5 K/mm3 (0.1-0.6); MONO % 12.5 % (1.7-9.3); PLATELET COUNT 117 K/mm3 (130-400); RED BLOOD COUNT 3.43 M/mm3 (4.20-5.60); REDCELL DISTRIBUTION WIDTH-CV 16.5 % (11.5-14.5)
[2022-01-11 06:33] LABS: CALCIUM 8.3 mg/dL (8.4-10.2); CREATININE, serum 1.62 mg/dL (0.72-1.25); POTASSIUM 3.8 mmol/L (3.5-4.5)
--- NOTE | 2022-01-11 07:57 | NUR ---
PT SITTING UP IN RECLINER. MORNING MEDICATIONS GIVEN. SHIFT ASSESSMENT COMPLETED. PT DENIES ANY NEEDS AT THIS TIME. UPDATED PT ON POC. WILL CONTINUE TO MONITOR.
[2022-01-11 08:12] VITALS: BP 153/102; PULSE 80; TEMP 98.1
[2022-01-11] MEDS ORDERED: TOPROL XL100 MG PO (10:19)
[2022-01-11] MEDS ORDERED: LASIX 40MG TABL40 MG PO (10:22)
[2022-01-11] MEDS ORDERED: GLUCOPHAGE500 MG/TAB PO (10:22)
--- NOTE | 2022-01-11 11:32 | NUR ---
SW informed that home health recommended for patient. SW went into discuss the recommendation with patient. Patient stated "why would I do that, when I can do the exercise on my own" SW provided the benefits that come with the services and patient stated, "I won't need it". SW informed PA of information provided by patient.
--- NOTE | 2022-01-11 11:48 | NUR ---
DISCHARGE INSTRUCTIONS GIVEN, ALL QUESTIONS ANSWERED. IV D/C. TELE D/C. BELONGINGS PACKED UP. WILL ESCORT PT DOWN TO VEHICLE. WILL D/C FROM SYSTEM.
== END 2022-01-11 12:19 | disposition home or self-care (01) | DRG 291 ==
LOC: COL.ER 14:06 → MEDICAL 19:27
PROVIDERS: Nurse Practitioner Family; Physician Assistant; Student in an Organized Health Care Education/Training Program; ADMIT Internal Medicine
DX: I13.0 Hypertensive heart and chronic kidney disease with heart failure and stage 1 through stage 4 chronic kidney disease, or unspecified chronic kidney disease (principal); I50.23 Acute on chronic systolic (congestive) heart failure; J96.01 Acute respiratory failure with hypoxia; C19 Malignant neoplasm of rectosigmoid junction; Z68.41 Body mass index [BMI] 40.0-44.9, adult; I48.91 Unspecified atrial fibrillation; I27.20 Pulmonary hypertension, unspecified; D64.9 Anemia, unspecified; D69.6 Thrombocytopenia, unspecified; I25.10 Atherosclerotic heart disease of native coronary artery without angina pectoris; N18.30 Chronic kidney disease, stage 3 unspecified; E66.01 Morbid (severe) obesity due to excess calories; M10.9 Gout, unspecified; E11.22 Type 2 diabetes mellitus with diabetic chronic kidney disease; I08.3 Combined rheumatic disorders of mitral, aortic and tricuspid valves; E78.5 Hyperlipidemia, unspecified; G47.33 Obstructive sleep apnea (adult) (pediatric); Z95.0 Presence of cardiac pacemaker; Z79.84 Long term (current) use of oral hypoglycemic drugs; Z79.82 Long term (current) use of aspirin; Z87.891 Personal history of nicotine dependence; Z91.14 Patient's other noncompliance with medication regimen; Z23 Encounter for immunization
CPT/HCPCS: 99223-AI; 99232-AI; 99233-AI; 99239; J1940; J3475; J7030; Q9967

== ENCOUNTER 2022-04-07 10:15 | Inpatient (IN) | payer OTHER, MEDICARE ==
[~2022-04-07] VITALS: Ht 167.6 cm; Wt 126.6 kg
[~2022-04-07 10:15] MED LIST changes: +GLUCOPHAGE500 MG/TAB PO; +TOPROL XL100 MG PO
[2022-04-07 10:45] LABS: BASO % 0.5 % (0.0-2.0); EOS # 0.1 K/mm3 (0.0-0.7); EOS % 0.7 % (0.0-4.0); GRAN # 6.1 K/mm3 (1.4-6.5); GRAN % 81.2 % (42.2-75.2); HEMOGLOBIN 11.5 g/dl (13.5-18.0); LYMPH # 0.8 K/mm3 (1.2-3.4); MEAN CELL VOLUME 95 fl (80.0-100.0); MEAN CORPUSCULAR HEMOGLOBIN 30 pg (27-31); MEAN CORPUSCULAR HGB CONC 32 g/dl (33.0-37.0); MEAN PLATELET VOLUME 10.1 fl (7.4-10.4); MONO # 0.6 K/mm3 (0.1-0.6); MONO % 7.3 % (1.7-9.3); PLATELET COUNT 138 K/mm3 (130-400); RED BLOOD COUNT 3.81 M/mm3 (4.20-5.60); REDCELL DISTRIBUTION WIDTH-CV 15.6 % (11.5-14.5)
[2022-04-07 10:46] LABS: HEMATOCRIT 36.2 % (42.0-52.0)
[2022-04-07 10:53] LABS: INR 1.2 (0.8-3.0); PROTHROMBIN TIME 14.3 SECONDS (9.7-12.8)
[2022-04-07 10:56] LABS: PARTIAL THROMBOPLASTIN TIME 33.9 SECONDS (26.0-37.0)
[2022-04-07 11:01] LABS: ALANINE AMINOTRANSFERASE 7 U/L (0-55); ALBUMIN 3.7 gm/dL (3.4-4.8); ALKALINE PHOSPHATASE 95 U/L (40-150); ANION GAP 12 mmol/L (7-16); AST,SGOT 18 U/L (5-34); BILIRUBIN,TOTAL 0.6 mg/dL (0.2-1.2); BLOOD UREA NITROGEN 37 mg/dL (8-26); CALCIUM 9.2 mg/dL (8.4-10.2); CARBON DIOXIDE 20 mmol/L (23-31); CHLORIDE 108 mmol/L (98-107); CREATININE, serum 2.14 mg/dL (0.72-1.25); GLUCOSE 98 mg/dL (70-99); POTASSIUM 4.2 mmol/L (3.5-4.5); SODIUM 140 mmol/L (136-145); TOTAL PROTEIN 6.7 gm/dL (6.2-8.1)
[2022-04-07 11:13] LABS: TROPONIN-I < 0.010 ng/mL (0.00-0.033)
[2022-04-07] MEDS ORDERED: HCTZ 25MG TAB25 MG PO (12:24)
[2022-04-07 14:34] VITALS: BP 133/90; PULSE 96; TEMP 97.5
[2022-04-07] MEDS ORDERED: ZESTRIL 20MG TA20 MG PO (16:03)
--- NOTE | 2022-04-07 16:12 | NUR ---
PT ADMITTED TO UNIT. ADMISSION INTAKE AND ASSESSMENT COMPLETED. MED REC UPDATED. PT ORIENTED TO ROOM. ROLL ON MAN AT BEDSIDE. PT REPORTS SOB AT REST AND WHEN AMBULATING, PT BELIEVES IT HAS IMPROVED IN THE LAST WEEK. CURRENTLY BREATHING ROOM AIR. HEPARIN GTT AND CARDIZEM GTT INFUSING AT THIS TIME. PT DENIES ANY PAIN OR NEEDS. A&O X4. WILL CONTINUE TO MONITOR.
[2022-04-07 16:56] VITALS: BP 132/94; PULSE 91; TEMP 98.3
--- NOTE | 2022-04-07 17:42 | NUR ---
HEPARIN GTT PLACED ON HOLD PER PROTOCOL, RECHECK HEP XA SCHEDULED FOR 1929.
[2022-04-07 18:48] VITALS: BP 120/72; PULSE 93; TEMP 98.5
[2022-04-07 23:07] VITALS: BP 128/76; PULSE 89; TEMP 98.4
[2022-04-08 04:49] VITALS: BP 116/75; PULSE 98; TEMP 98.3
[2022-04-08 06:11] LABS: BASO # 0.1 K/mm3 (0.0-0.2); BASO % 0.9 % (0.0-2.0); EOS # 0.1 K/mm3 (0.0-0.7); EOS % 1.6 % (0.0-4.0); GRAN # 4.3 K/mm3 (1.4-6.5); GRAN % 75.8 % (42.2-75.2); HEMOGLOBIN 10.6 g/dl (13.5-18.0); LYMPH # 0.8 K/mm3 (1.2-3.4); LYMPH % 13.5 % (20.0-51.0); MEAN CELL VOLUME 96 fl (80.0-100.0); MEAN CORPUSCULAR HEMOGLOBIN 30 pg (27-31); MEAN CORPUSCULAR HGB CONC 31 g/dl (33.0-37.0); MEAN PLATELET VOLUME 10.8 fl (7.4-10.4); MONO # 0.5 K/mm3 (0.1-0.6); MONO % 7.9 % (1.7-9.3); PLATELET COUNT 132 K/mm3 (130-400); RED BLOOD COUNT 3.55 M/mm3 (4.20-5.60); REDCELL DISTRIBUTION WIDTH-CV 15.4 % (11.5-14.5)
[2022-04-08 06:22] LABS: HEMATOCRIT 34.1 % (42.0-52.0)
[2022-04-08 06:34] LABS: ALBUMIN 3.3 gm/dL (3.4-4.8); CALCIUM 8.8 mg/dL (8.4-10.2); CREATININE, serum 1.9 mg/dL (0.72-1.25); MAGNESIUM 1.5 mg/dL (1.6-2.6); PHOSPHOROUS 3.7 mg/dL (2.3-4.7); POTASSIUM 3.8 mmol/L (3.5-4.5)
[2022-04-08 07:11] VITALS: BP 136/93; PULSE 101; TEMP 97.4
--- NOTE | 2022-04-08 07:37 | NUR ---
PATIENT TACHYCARDIC 100-12. PAGED PLACED TO CARDIOLOGY
[2022-04-08] MEDS ORDERED: GLUCOPHAGE1000 MG PO (09:59)
--- NOTE | 2022-04-08 10:30 | NUR ---
Initial visit; Patient thanked Supervisor Counseling And Guidance for coming in and offering God's blessings and keeping him in Supervisor [employer] And Guid[employer]'s prayers.
--- NOTE | 2022-04-08 10:45 | NUR ---
CARDIZEM DRIP DSICONTINUED ORDERED. TOPROLOL PO GIVEN ORDERED. LASIX INITIATED, HEPARIN STILL INFUSING. PATIENT AWAKE ALERT AND ORIENTED AT THIS TIME. RESTING IN BED WITH NO COMPLAINTS. WILL CONT TO MONITOR.
[2022-04-08 11:25] VITALS: BP 116/74; PULSE 51; TEMP 98.1
[2022-04-08 16:13] VITALS: BP 121/87; PULSE 86; TEMP 98.4
[2022-04-08 19:15] VITALS: BP 107/64; PULSE 78; TEMP 97.8
--- NOTE | 2022-04-08 20:43 | NUR ---
Patient assessed around 1914. Denies having pain and discomfort. Continues on Heparin drip and Lasix drip per orders. Plan for lexiscan tomorrow, patient is aware. Continues on [id number]. Voices no questions, needs, or concerns at this time. In bed with call light within reach. philanthropy officer in room.
[2022-04-08 23:40] VITALS: BP 112/84; PULSE 81; TEMP 98.3
[2022-04-09] VITALS (7 sets, daily range): BP systolic 108–138; BP diastolic 78–91; PULSE 87–100; TEMP 97.5–98.2
--- NOTE | 2022-04-09 05:44 | NUR ---
forest fire officer remains at bedside. Patient continues on Lasix drip and has gone to the bathroom at least once very hour. Remains in A-fib on telemetry. Has been NPO since midnight for Genaroiscn today. Continues on Heparin drip per orders. Awaiting recheck this morning per protocol. Voices no questions, needs, or concerns at this time. In bed with call light within reach.
[2022-04-09 06:09] LABS: BASO % 0.6 % (0.0-2.0); EOS # 0.1 K/mm3 (0.0-0.7); EOS % 1.7 % (0.0-4.0); GRAN # 4.8 K/mm3 (1.4-6.5); GRAN % 74.5 % (42.2-75.2); HEMATOCRIT 35.7 % (42.0-52.0); HEMOGLOBIN 11.5 g/dl (13.5-18.0); LYMPH # 0.9 K/mm3 (1.2-3.4); LYMPH % 13.6 % (20.0-51.0); MEAN CELL VOLUME 93 fl (80.0-100.0); MEAN CORPUSCULAR HEMOGLOBIN 30 pg (27-31); MEAN CORPUSCULAR HGB CONC 32 g/dl (33.0-37.0); MEAN PLATELET VOLUME 10.4 fl (7.4-10.4); MONO # 0.6 K/mm3 (0.1-0.6); MONO % 9.4 % (1.7-9.3); PLATELET COUNT 144 K/mm3 (130-400); RED BLOOD COUNT 3.86 M/mm3 (4.20-5.60); REDCELL DISTRIBUTION WIDTH-CV 15.4 % (11.5-14.5)
[2022-04-09 06:28] LABS: ALBUMIN 3.6 gm/dL (3.4-4.8); CALCIUM 9.2 mg/dL (8.4-10.2); CREATININE, serum 1.98 mg/dL (0.72-1.25); MAGNESIUM 1.6 mg/dL (1.6-2.6); PHOSPHOROUS 4.1 mg/dL (2.3-4.7); POTASSIUM 3.5 mmol/L (3.5-4.5)
--- NOTE | 2022-04-09 09:01 | NUR ---
VSS, PT A&O X4, PT ABLE TO MAKE NEEDS KNOWN, PT RESTING IN BED, LAW ENFORCEMENT AT BEDSIDE, PT DENIES PAIN, FALL PRECAUTIONS IN PLACE, CALL LIGHT WITHIN REACH
--- NOTE | 2022-04-09 12:43 | NUR ---
FANNIE collaborated with [facility] officer at patient's bedside. Patient is in custody and at the time of discharge, will reeturn to the [facility]. Officer states that the [facility] RN, would like the patient's clinical record at the time of DC. RN information: Ailin [phone] [email or web address]
[2022-04-09] MEDS ORDERED: ZESTRIL 5MG5 MG PO (15:01)
[2022-04-09] MEDS ORDERED: JARDIANCE10 PO (15:02)
[2022-04-09] MEDS ORDERED: MAG-OX 400400 MG/TAB PO (15:02)
[2022-04-09] MEDS ORDERED: LASIX 40MG TABL40 MG PO (15:02)
[2022-04-09] MEDS ORDERED: ASPIRIN E.C. 8181 MG PO (15:04)
[2022-04-09] MEDS ORDERED: TOPROL XL 25MG25 MG PO (15:04)
[2022-04-09] MEDS ORDERED: ZYLOPRIM 100MG100 MG PO (15:05)
--- NOTE | 2022-04-09 15:49 | NUR ---
PT BEING DISMISSED TODAY, REPORT CALLED TO JUAN MIGUEL MONTIEL AT THE [facility], PT EDUCATED ON DISMISSAL INSTRUCTIONS/MEDICATION INSTRUCTIONS/FOLLOW UP INSTRUCTIONS, PT VOICED NO QUESTIONS/CONCERNS AT TIME OF DISMISSAL, PT TRANSPORTED TO EXIT PER BRAND REPRESENTATIVE WITH WC, NO FURTHER CONCERNS
== END 2022-04-09 15:50 | disposition home or self-care (01) | DRG 291 ==
LOC: COL.ER 10:15 → MEDICAL 11:39
PROVIDERS: Family Medicine; ADMIT Internal Medicine
DX: I13.0 Hypertensive heart and chronic kidney disease with heart failure and stage 1 through stage 4 chronic kidney disease, or unspecified chronic kidney disease (principal); I50.23 Acute on chronic systolic (congestive) heart failure; I48.19 Other persistent atrial fibrillation; J91.8 Pleural effusion in other conditions classified elsewhere; Z68.42 Body mass index [BMI] 45.0-49.9, adult; E11.22 Type 2 diabetes mellitus with diabetic chronic kidney disease; N18.9 Chronic kidney disease, unspecified; I27.20 Pulmonary hypertension, unspecified; I25.10 Atherosclerotic heart disease of native coronary artery without angina pectoris; E66.01 Morbid (severe) obesity due to excess calories; M10.9 Gout, unspecified; D69.6 Thrombocytopenia, unspecified; D64.9 Anemia, unspecified; I08.3 Combined rheumatic disorders of mitral, aortic and tricuspid valves; G47.30 Sleep apnea, unspecified; Z87.19 Personal history of other diseases of the digestive system; Z85.038 Personal history of other malignant neoplasm of large intestine; Z91.14 Patient's other noncompliance with medication regimen; Z95.0 Presence of cardiac pacemaker; Z72.89 Other problems related to lifestyle; Z87.891 Personal history of nicotine dependence; Z79.84 Long term (current) use of oral hypoglycemic drugs; Z79.82 Long term (current) use of aspirin; Z23 Encounter for immunization
CPT/HCPCS: OP; A9270; A9500; G0378; J1644; J1940; J2785; J3475